=== PATIENT | female | born 1965 | race Caucasian/White ===

== ENCOUNTER 2017-03-12 17:25 | Emergency (ER) | payer SELFPAY ==
[~2017-03-12] VITALS: Ht 170.2 cm; Wt 60.0 kg
[~2017-03-12 17:25] MED LIST: CEPH500T PO; IBUP600T26 PO; LISI-363 PO
[2017-03-12 17:30] VITALS: BP 206/107; PULSE 88; RESP 20; TEMP 98.3; O2SAT 99
--- NOTE | 2017-03-12 19:09 | PD ---
HPI Chief Complaint: Injury Time Seen by Provider: 19:09 Travel History International Travel<30 days: No Contact w/Intl Traveler<30days: No Traveled to known affect area: No History of Present Illness HPI 51-year-old male came to the emergency room with right hand swelling. Patient said that she injured her right hand 4 months ago while lifting something heavy. She did not seek medical attention for that as per her. About 4-5 days ago she lifted a heavy garbage bin and since then she's been having pain worsening. She also noticed swelling on the dorsum of her hand. It's radiating down her wrist area. No history of fever or chills. Vital signs were stable except for blood pressure which is high. Patient says she has history of hypertension and has not been taking her medication. [facility] Past Medical History Narrative Medical List of her past medical, surgical, social and family history is reviewed from the nursing note. Cardiovascular Problems: Yes Diminished Hearing: No Psychiatric: Yes : 2 Para: 2 Tubal Ligation: Yes (4 LAPS FOR ENDOMETRIOSIS) Past Surgical History Abdominal Aneurysm Repair: Yes (DOUBLE CLIPPED IN 1998) Gynecologic Surgery: Yes (PRECANCER CELLS FROZEN) Neurologic Surgery: Yes (BRAIN ANUEURYSM) Social History Alcohol Use: Yes (OCCASIONAL) Tobacco Use: Yes (1 PK A DAY) Substance Use: No (STATES THAT SHE IS CLEAN NOW) Allergies-Medications (Allergen,Severity, Reaction): Coded Allergies: Penicillin (Unverified Adverse Reaction, Intermediate, HIVES, 03/12/17) Comments List of her allergies reviewed from the nursing note. Reported Meds & Prescriptions Reported Meds & Active Scripts Active Lisinopril 20 Mg Tab 20 Mg PO DAILY Narrative Medication List of her home medications reviewed from the nursing note. Review of Systems Except as stated in HPI: all other systems reviewed are Neg Physical Exam Narrative GENERAL: Awake, alert, disheveled, moderate distress SKIN: Focused skin assessment warm/dry. Patient has vitiligo. HEAD: Atraumatic. Normocephalic. EYES: Pupils equal and round. No scleral icterus. No injection or drainage. ENT: No nasal bleeding or discharge. Mucous membranes pink and moist. NECK: Trachea midline. No JVD. CARDIOVASCULAR: Regular rate and rhythm. No murmur appreciated. RESPIRATORY: No accessory muscle use. Clear to auscultation. Breath sounds equal bilaterally. GASTROINTESTINAL: Abdomen soft, non-tender, nondistended. Hepatic and splenic margins not palpable. MUSCULOSKELETAL: Dorsum of the right hand is swollen and tender. No erythema or warmth of the skin. Decreased range of motion of the finger joint due to the pain. No clubbing. No cyanosis. No edema. NEUROLOGICAL: Awake and alert. No obvious cranial nerve deficits. Motor grossly within normal limits. Normal speech. PSYCHIATRIC: Appropriate mood and affect; insight and judgment normal. Data Data Last Documented VS Vital Signs Date Time Temp Pulse Resp B/P Pulse Ox O2 Delivery O2 Flow Rate FiO2 03/12/17 22:30 78 16 175/100 97 03/12/17 17:30 98.3 Room Air Orders Hand, Complete ([id number]) (03/12/17 ) Acetamin-Hydrocod 325-5 Mg ([place] 5-325 (03/12/17 19:15) Lisinopril (Prinivil) (03/12/17 21:00) MDM Medical Decision Making Medical Screen Exam Complete: Yes Emergency Medical Condition: Yes Medical Record Reviewed: Yes Differential Diagnosis Hematoma, metacarpal fracture Narrative Course 10:09 PM x-ray did not show any fracture. There is soft tissue swelling. Patient could have underlying hematoma. I'm comfortable discharging her home given the fact that she is afebrile. She was given 20 mg of lisinopril to bring her blood pressure down. I'll give her a prescription for the lisinopril. She will follow-up with the hand surgeon. Procedures EKG Prior to Arrival: No Diagnosis Primary Impression: Hematoma Additional Impressions: Hand pain Qualified Code: M79.641 - Pain of right hand Hypertension Qualified Code: I10 - Essential hypertension Referrals: Sidra Christopher MD 1 day Additional Instructions: Please follow-up with the hand surgeon was name and number been provided to you. Take the blood pressure medication like is supposed to. Apply ice compress. Med/Other Pt SpecificInfo: Prescription(s) given Scripts Lisinopril 20 Mg Tab20 Mg PO DAILY #30 TAB Ref 0 Prov:Aster Schafer MD 03/12/17 Disposition: 01 DISCHARGE HOME Condition: Stable Aster Schafer MD Mar 12, 2017 19:09
[2017-03-12] MEDS ORDERED: ACETAMINOPHEN/HYDROcodone 325 MG/5 MG TAB PO ONE (19:15)
--- NOTE | 2017-03-12 19:59 | RADRPT ---
EXAM DATE/TIME: 03/12/2017 19:30 [place] COMPARISON: No previous studies available for comparison. INDICATIONS : Right hand pain and swelling mid-carpal area. MEDICAL HISTORY : None. SURGICAL HISTORY : None. ENCOUNTER: Initial ACUITY: 2 weeks PAIN SCORE: 8/10 LOCATION: Right hand. FINDINGS: No definite fractures, or dislocations are identified. No definite lytic or sclerotic lesion is seen . CONCLUSION: Unremarkable study. Addy Martinez MD on March 12, 2017 at 19:56 Board Certified Radiologist. This report was verified electronically.
[2017-03-12] MEDS ORDERED: LISINOPRIL 20 MG TAB PO ONE (21:00)
[2017-03-12] MEDS ORDERED: LISI-515 PO (22:10)
[2017-03-12 22:30] VITALS: BP 175/100
== END 2017-03-12 22:35 | disposition home or self-care (01) ==
LOC: NEPC 17:25
DX: S60.221A Contusion of right hand, initial encounter (principal); M79.641 Pain in right hand; I10 Essential (primary) hypertension; X50.0XXA Overexertion from strenuous movement or load, initial encounter; Y93.9 Activity, unspecified; Y92.9 Unspecified place or not applicable; Y99.9 Unspecified external cause status
CPT/HCPCS: 73130; 99283

== ENCOUNTER 2017-10-29 13:57 | Emergency (ER) | payer SELFPAY ==
[~2017-10-29 13:57] MED LIST changes: -CEPH500T PO; -IBUP600T26 PO; -LISI-363 PO; +LISI-515 PO
[2017-10-29 14:00] VITALS: BP 224/136; PULSE 114; RESP 18; TEMP 98.2; O2SAT 98
--- NOTE | 2017-10-29 14:35 | PD ---
HPI Chief Complaint: Musculoskeletal Complaint Time Seen by Provider: 14:22 Travel History International Travel<30 days: No Contact w/Intl Traveler<30days: No Traveled to known affect area: No History of Present Illness HPI 52-year-old female presents to emergency department complaining of right hand pain for actually one year. Patient states that last night it worsened after lifting a bag of clothes. Patient says she was here in February for the same issue but hasn't unable to follow up with a hand surgeon as recommended because of insurance issues. Currently she has shooting pain from her wrist to her elbow and has severe pain in the dorsal aspect of her hand. Patient is right- handed. States movement increases her pain. Denies illicit drug use. States she has HTN for which she takes lisinopril 20mg daily. Pt has a difficult time explaining her symptoms secondary to extreme anxiety. PFSH Past Medical History Cardiovascular Problems: Yes Diminished Hearing: No Psychiatric: Yes : 2 Para: 2 Tubal Ligation: Yes (4 LAPS FOR ENDOMETRIOSIS) Past Surgical History Abdominal Aneurysm Repair: Yes (DOUBLE CLIPPED IN 1998) Gynecologic Surgery: Yes (PRECANCER CELLS FROZEN) Neurologic Surgery: Yes (BRAIN ANUEURYSM) Social History Alcohol Use: Yes (OCCASIONAL) Tobacco Use: Yes (1 PK A DAY) Substance Use: No (STATES THAT SHE IS CLEAN NOW) Allergies-Medications (Allergen,Severity, Reaction): Coded Allergies: penicillin G (Unverified Adverse Reaction, Intermediate, HIVES, 06/30/17) Reported Meds & Prescriptions Reported Meds & Active Scripts Active Ibuprofen 800 Mg Tab 800 Mg PO TID 5 Days Lisinopril 20 Mg Tab 20 Mg PO DAILY Review of Systems Except as stated in HPI: all other systems reviewed are Neg Physical Exam Narrative GENERAL: Well-developed well-nourished in mild distress, very anxious SKIN: Focused skin assessment warm/dry. HEAD: Atraumatic. Normocephalic. EYES: Pupils equal and round. No scleral icterus. No injection or drainage. ENT: No nasal bleeding or discharge. Mucous membranes pink and moist. NECK: Trachea midline. No JVD. CARDIOVASCULAR: Regular rate and rhythm. No murmur appreciated. RESPIRATORY: No accessory muscle use. Clear to auscultation. Breath sounds equal bilaterally. GASTROINTESTINAL: Abdomen soft, non-tender, nondistended. Hepatic and splenic margins not palpable. MUSCULOSKELETAL: No obvious deformities. No clubbing. No cyanosis. No edema. Right hand and wrist- Dorsal aspect with large hematoma versus cyst approximately 2-1/2 cm. Distal wrist with 1-1/2 cm hematoma versus cyst. No erythema, edema, or lymphangitic Spread. Tinels against the cubital tunnel is positive. Tender to palpation over the hematoma and fingers. Otherwise neurovascularly intact. Elbow full range of motion, mild discomfort with rotation of forearm. NEUROLOGICAL: Awake and alert. No obvious cranial nerve deficits. Motor grossly within normal limits. Normal speech. PSYCHIATRIC: Appropriate mood and affect; insight and judgment normal. Data Data Last Documented VS Vital Signs Date Time Temp Pulse Resp B/P (MAP) Pulse Ox O2 Delivery O2 Flow Rate FiO2 10/29/17 17:19 103 19 168/102 (124) 100 10/29/17 16:59 Room Air 10/29/17 14:00 98.2 Orders Orders Acetamin-Hydrocod 325-5 Mg ([place] 5-325 (10/29/17 14:45) Mandatory Outpatient Referral (10/29/17 14:39) Clonidine (Catapres) (10/29/17 15:30) Ed Discharge Order (10/29/17 17:02) [facility] Medical Decision Making Medical Screen Exam Complete: Yes Emergency Medical Condition: Yes Differential Diagnosis right hand hematoma, bursitis, cyst Narrative Course 52-year-old female presents to emergency department complaining of right hand pain for actually one year. Patient states that last night it worsened after lifting a bag of clothes. Patient says she was here in February for the same issue but hasn't unable to follow up with a hand surgeon as recommended because of insurance issues. Currently she has shooting pain from her wrist to her elbow and has severe pain in the dorsal aspect of her hand. Patient is right- handed. States movement increases her pain. Denies illicit drug use. Denies trauma. States she has HTN for which she takes lisinopril 20mg daily. Pt has a difficult time explaining her symptoms secondary to extreme anxiety. Patient is right-handed. Vital signs improved with clonidine and hydrocodone Physical exam findings- neurovascularly intact right upper extremity. Hematomas over the dorsal aspect of hand and wrist. Hydrocodone administered for pain relief. Patient states that it "took the edge off". Strongly advised patient to follow up with primary care physician and hand surgeon. Mandatory referral placed for hand surgeon. Advised to use ibuprofen for pain relief. Patient was extremely anxious during her stay. Her friend was able to assist me in communicating with her and calming her down. Again I strongly advised patient follow-up with a hand surgeon and told her that she would have a minutes or referral placed into expect a call from them. If she did not hear from them within 2-3 days to call the hospital. Diagnosis Primary Impression: Hematoma Additional Impression: Neuropathic pain Referrals: [facility] Hand Surgeon Additional Instructions: Take medication as prescribed. Continue to ice and wrap the hand to reduce swelling. Follow up with your primary care physician within 2-3 days. If your symptoms persist or worsen, return to the emergency department. Scripts Ibuprofen (Ibuprofen) 800 Mg Tab 800 MG PO TID for Arthritis Pain for 5 Days, TAB 0 Refills Prov: MarinoDannaRhonda L DO 10/29/17 Disposition: 01 DISCHARGE HOME Condition: Stable Yuko Nieto Oct 29, 2017 14:35
[2017-10-29] MEDS ORDERED: ACETAMINOPHEN/HYDROcodone 325 MG/5 MG TAB PO ONE (14:45)
[2017-10-29] MEDS ORDERED: cloNIDine HCL 0.1 MG TAB PO ONE (15:30)
[2017-10-29] MEDS ORDERED: IBUP1TAB7 PO (16:36)
[2017-10-29 16:59] VITALS: BP 168/102; PULSE 103; RESP 19; O2SAT 100
[2017-10-29 17:19] VITALS: BP 168/102
== END 2017-10-29 17:20 | disposition home or self-care (01) ==
LOC: NEPD 13:57
DX: M79.2 Neuralgia and neuritis, unspecified (principal); I10 Essential (primary) hypertension; F17.200 Nicotine dependence, unspecified, uncomplicated
CPT/HCPCS: 99284